=== PATIENT | female | born 1985 | race Caucasian/White ===

== ENCOUNTER 2016-05-02 17:31 | Emergency (ER) | payer OTHER ==
[~2016-05-02] VITALS: Ht 165.1 cm; Wt 123.0 kg
[~2016-05-02 17:31] MED LIST: PREN-64 PO
[2016-05-02 19:48] VITALS: BP 124/81
[2016-05-02] MEDS ORDERED: DEXAMETHASONE SOD PHOS 4 MG/ML 5 ML VIAL IM ONE (20:15)
[2016-05-02] MEDS ORDERED: LIDOCAINE HCL/PF 1% 2 ML VIAL IM ONE (20:15)
[2016-05-02] MEDS ORDERED: CefTRIAXone SODIUM 1 GM/VIAL IM ONE (20:15)
== END 2016-05-02 20:44 | disposition home or self-care (01) ==
LOC: EMS 17:32
DX: S90.861A Insect bite (nonvenomous), right foot, initial encounter (principal); W57.XXXA Bitten or stung by nonvenomous insect and other nonvenomous arthropods, initial encounter; Y93.01 Activity, walking, marching and hiking; Y92.830 Public park as the place of occurrence of the external cause; Y99.8 Other external cause status
CPT/HCPCS: 81025; 96372; 99284; J0696; J1100; J3490

== ENCOUNTER 2016-05-08 15:21 | Emergency (ER) | payer OTHER ==
[~2016-05-08] VITALS: Ht 160 cm; Wt 122.7 kg
[2016-05-08 16:42] LABS: BASOPHILS % (AUTO) 0.4 % (0.0-2.0); EOSINOPHILS % (AUTO) 0.9 % (1.0-6.0); HEMATOCRIT 38.6 % (36-46); HEMOGLOBIN 12.4 g/dL (12.0-16.0); LYMPHOCYTES # (AUTO) 2.2 K/uL (1.0-4.8); LYMPHOCYTES % (AUTO) 22.7 % (22.0-44.0); MEAN CORPUSCULAR HEMOGLOBIN 24.7 pg (26.0-34.0); MEAN CORPUSCULAR HGB CONC 32.2 G/dL (31.0-37.0); MEAN CORPUSCULAR VOLUME 77 fL (80-100); MONOCYTES # (AUTO) 0.4 K/uL (0.1-1.0); MONOCYTES % (AUTO) 3.8 % (2.0-9.0); NEUTROPHILS # (AUTO) 7.1 K/uL (1.8-7.7); NEUTROPHILS % (AUTO) 72.2 % (40.0-70.0); PLATELET COUNT (AUTO) 279 K/uL (150-450); RED BLOOD CELL COUNT(AUTO) 5.04 MIL/uL (4.00-5.20); RED CELL DISTRIBUTION WIDTH 16.1 % (11.5-14.5); WHITE BLOOD COUNT (AUTO) 9.8 K/uL (4.5-11.0)
[2016-05-08 16:50] LABS: ANION GAP 10 mmol/L (8-16); CALCIUM, TOTAL 8.9 mg/dL (8.8-10.5); CARBON DIOXIDE 25 mmol/L (22-29); CHLORIDE 104 mmol/L (98-107); CREATININE 0.68 mg/dL (0.60-1.30); GLOMERULAR FILTR. RATE CALC > 60 mL/min (>60); POTASSIUM 3.9 mmol/L (3.5-5.1); SODIUM SERUM 139 mmol/L (136-145); UREA NITROGEN, BLOOD 11 mg/dL (7-18)
[2016-05-08 16:57] LABS: ALANINE AMINOTRANSFERASE 27 U/L (12-78); ALBUMIN 3.3 g/dL (3.4-5.0); ASPARTATE AMINOTRANSFERASE 14 U/L (15-37); BILIRUBIN,TOTAL 0.3 mg/dL (0.1-1.0)
[2016-05-08 17:12] LABS: RBC MORPHOLOGY COMMENT ABNORMAL RBC MORPH
[2016-05-08 18:53] VITALS: BP 138/76
== END 2016-05-08 19:03 | disposition left against medical advice (07) ==
LOC: EMS 15:24 → EEVIPCON 15:24 → EMS 19:03
DX: F25.9 Schizoaffective disorder, unspecified (principal)
CPT/HCPCS: 36415; 80053; 80307; 85025; 99284; G0480

== ENCOUNTER 2016-08-24 22:00 | Emergency (ER) | payer OTHER ==
[~2016-08-24] VITALS: Ht 160 cm; Wt 122.0 kg
[2016-08-24] MEDS ORDERED: NORE0.3537 PO (22:24)
[2016-08-25] MEDS ORDERED: KETOROLAC TROMETHAMINE 60 MG/2 ML VIAL IM ONE (00:45)
[2016-08-25 01:12] VITALS: BP 128/74
== END 2016-08-25 01:21 | disposition home or self-care (01) ==
LOC: EMS 22:02
DX: M54.31 Sciatica, right side (principal)
CPT/HCPCS: 96372; 99283; J1885

== ENCOUNTER 2016-10-18 21:54 | Emergency (ER) | payer OTHER ==
[~2016-10-18] VITALS: Ht 162.6 cm; Wt 132.5 kg
[~2016-10-18 21:54] MED LIST changes: +PREN-155 PO; -PREN-64 PO
[2016-10-18] MEDS ORDERED: AMOX250C4 PO (22:09)
[2016-10-18] MEDS ORDERED: ACETAMINOPHEN 500 MG TABLET PO ONE (23:00)
[2016-10-18] MEDS ORDERED: AMOX TR/POT CLAV 875 MG/125 MG TABLET PO ONE (23:00)
[2016-10-18 23:56] VITALS: BP 107/69
== END 2016-10-19 00:01 | disposition home or self-care (01) ==
LOC: EMS 21:56
DX: O26.891 Other specified pregnancy related conditions, first trimester (principal); L03.113 Cellulitis of right upper limb; F25.9 Schizoaffective disorder, unspecified; Z3A.10 10 weeks gestation of pregnancy
CPT/HCPCS: 99283

== ENCOUNTER 2017-02-07 12:07 | Emergency (ER) | payer OTHER ==
[~2017-02-07] VITALS: Ht 162.6 cm; Wt 140.0 kg
[~2017-02-07 12:07] MED LIST changes: +AMOX250C4 PO
[2017-02-07] MEDS ORDERED: IBUPROFEN 100 MG/5 ML SUSPENSION UDCUP PO ONE (13:15)
[2017-02-07 14:25] VITALS: BP 126/75
== END 2017-02-07 14:26 | disposition home or self-care (01) ==
LOC: EMS 12:09
DX: O99.512 Diseases of the respiratory system complicating pregnancy, second trimester (principal); J20.9 Acute bronchitis, unspecified; Z3A.27 27 weeks gestation of pregnancy
CPT/HCPCS: 99281

== ENCOUNTER 2018-03-28 08:16 | Emergency (ER) | payer OTHER ==
[~2018-03-28] VITALS: Ht 160 cm; Wt 135.0 kg
[2018-03-28] MEDS ORDERED: ACETAMINOPHEN 500 MG TABLET PO ONE (09:00)
[2018-03-28] MEDS ORDERED: PENICILLIN V POTASSIUM 500 MG TABLET PO ONE (09:00)
[2018-03-28 10:01] VITALS: BP 126/76
== END 2018-03-28 10:03 | disposition home or self-care (01) ==
LOC: EMS 08:17
DX: O26.892 Other specified pregnancy related conditions, second trimester (principal); J02.9 Acute pharyngitis, unspecified; F25.9 Schizoaffective disorder, unspecified; Z3A.24 24 weeks gestation of pregnancy
CPT/HCPCS: 87430

== ENCOUNTER 2018-09-19 21:01 | Emergency (ER) | payer OTHER ==
[~2018-09-19] VITALS: Ht 160 cm; Wt 132.7 kg
[2018-09-19 21:59] VITALS: BP 129/77
== END 2018-09-19 22:53 | disposition home or self-care (01) ==
LOC: EMS 21:02
DX: S90.121A Contusion of right lesser toe(s) without damage to nail, initial encounter (principal); W22.8XXA Striking against or struck by other objects, initial encounter; Y93.89 Activity, other specified; Y92.89 Other specified places as the place of occurrence of the external cause; Y99.8 Other external cause status

== ENCOUNTER 2018-11-12 20:06 | Emergency (ER) | payer OTHER ==
[~2018-11-12] VITALS: Ht 162.6 cm; Wt 132.3 kg
[2018-11-12] MEDS: AMOXICILLIN TRIHYDRATE 250 MG CAPSULE PO ONE (22:32)
[2018-11-12] MEDS: IBUPROFEN 600 MG TABLET PO ONE (22:32)
[2018-11-12 22:40] VITALS: BP 126/92
[2018-11-12] MEDS: CIPROFLOXACIN HCL 250 MG TABLET PO ONE (22:45)
== END 2018-11-12 22:53 | disposition home or self-care (01) ==
LOC: EMS 20:07
DX: K04.7 Periapical abscess without sinus (principal)

== ENCOUNTER 2019-05-11 23:10 | Emergency (ER) | payer OTHER ==
[~2019-05-11] VITALS: Ht 160 cm; Wt 81.8 kg
[2019-05-11 23:50] LABS: BASOPHILS % (AUTO) 0.4 % (0.0-2.0); EOSINOPHILS % (AUTO) 2.8 % (1.0-6.0); HEMATOCRIT 38.2 % (36-46); HEMOGLOBIN 12.3 g/dL (12.0-16.0); LYMPHOCYTES # (AUTO) 2.8 K/uL (1.0-4.8); LYMPHOCYTES % (AUTO) 27.2 % (22.0-44.0); MEAN CORPUSCULAR HEMOGLOBIN 23.6 pg (26.0-34.0); MEAN CORPUSCULAR HGB CONC 32.3 G/dL (31.0-37.0); MEAN CORPUSCULAR VOLUME 73 fL (80-100); MONOCYTES # (AUTO) 0.4 K/uL (0.1-1.0); MONOCYTES % (AUTO) 3.7 % (2.0-9.0); NEUTROPHILS # (AUTO) 6.8 K/uL (1.8-7.7); NEUTROPHILS % (AUTO) 65.9 % (40.0-70.0); PLATELET COUNT (AUTO) 270 K/uL (150-450); RED BLOOD CELL COUNT(AUTO) 5.23 MIL/uL (4.00-5.20); RED CELL DISTRIBUTION WIDTH 18.1 % (11.5-14.5)
[2019-05-11 23:53] LABS: APPEARANCE,URINE CLEAR (CLEAR); BILIRUBIN,URINE NEGATIVE (NEGATIVE); GLUCOSE, URINE (UA) NEGATIVE (NEGATIVE); KETONES,URINE NEGATIVE (NEGATIVE); LEUKOCYTE ESTERASE ,URINE SMALL (NEGATIVE); NITRATE,URINE NEGATIVE (NEGATIVE); OCCULT BLOOD,URINE NEGATIVE (NEGATIVE); PROTEIN,URINE NEGATIVE (NEGATIVE); UROBILINOGEN,URINE 0.2 mg/dL (<=1.0)
[2019-05-12] LABS: ANION GAP 8 mmol/L (8-16); CALCIUM, TOTAL 9.6 mg/dL (8.8-10.5); CARBON DIOXIDE 28 mmol/L (22-29); CHLORIDE 106 mmol/L (98-107); CREATININE 0.82 mg/dL (0.60-1.30); GLOMERULAR FILTR. RATE CALC > 60 mL/min (>60); GLUCOSE,RANDOM 80 mg/dL (70-110); POTASSIUM 3.8 mmol/L (3.5-5.1); SODIUM SERUM 142 mmol/L (136-145); UREA NITROGEN, BLOOD 16 mg/dL (7-18)
[2019-05-12] MEDS ORDERED: ACETAMINOPHEN 500 MG TABLET PO ONE
[2019-05-12] MEDS ORDERED: FLUCONAZOLE 150 MG TABLET PO ONE
[2019-05-12 00:12] LABS: ALANINE AMINOTRANSFERASE 34 U/L (12-78); ALBUMIN 3.3 g/dL (3.4-5.0); ALKALINE PHOSPHATASE 105 U/L (46-116); ASPARTATE AMINOTRANSFERASE 16 U/L (15-37); BILIRUBIN,TOTAL 0.1 mg/dL (0.1-1.0); HCG,QUANTITATIVE < 1 mIU/mL (0-6); LIPASE 95 U/L (73-393); TOTAL PROTEIN, SERUM 7.2 g/dL (6.4-8.2)
[2019-05-12] MEDS ORDERED: KETOROLAC TROMETHAMINE 30 MG/ML VIAL IVP ONE (00:30)
[2019-05-12 00:31] LABS: BACTERIA,URINE Rare /HPF (None Seen); SQUAMOUS EPITHELIAL CELL,UR Moderate /LPF (None Seen)
[2019-05-12] MEDS ORDERED: SULFAMETHOX/TRIMETH DS 800-160 MG/TABLET PO ONE (01:00)
[2019-05-12 01:11] VITALS: BP 122/89
== END 2019-05-12 01:13 | disposition home or self-care (01) ==
LOC: EMS 23:10
DX: N12 Tubulo-interstitial nephritis, not specified as acute or chronic (principal); B37.3 Candidiasis of vulva and vagina; Z88.1 Allergy status to other antibiotic agents
CPT/HCPCS: 36415; 80053; 81001; 83690; 84702; 85025; 87086; 96374; 99284; J1885

== ENCOUNTER 2019-12-11 15:05 | Emergency (ER) | payer OTHER ==
[~2019-12-11] VITALS: Ht 160 cm; Wt 122.7 kg
[2019-12-11 15:07] VITALS: BP 130/73
== END 2019-12-11 17:40 | disposition home or self-care (01) ==
LOC: EMS 15:06
DX: S00.83XA Contusion of other part of head, initial encounter (principal); Z88.1 Allergy status to other antibiotic agents; Y04.0XXA Assault by unarmed brawl or fight, initial encounter; Y93.89 Activity, other specified; Y92.89 Other specified places as the place of occurrence of the external cause; Y99.8 Other external cause status
CPT/HCPCS: Z7502

== ENCOUNTER 2020-01-01 19:54 | Emergency (ER) | payer OTHER ==
[~2020-01-01] VITALS: Ht 162.6 cm; Wt 127.3 kg
[2020-01-01] MEDS ORDERED: PNV1TABL89 PO (20:02)
[2020-01-01] MEDS ORDERED: NEOMYCIN/BACITRACIN/POLYMYXIN B OINTMENT PACKET TP ONE (20:30)
[2020-01-01 20:36] VITALS: BP 120/77
== END 2020-01-01 20:36 | disposition home or self-care (01) ==
LOC: EMS 19:56
DX: T63.331A Toxic effect of venom of brown recluse spider, accidental (unintentional), initial encounter (principal); Z88.0 Allergy status to penicillin; Z79.899 Other long term (current) drug therapy; Y92.89 Other specified places as the place of occurrence of the external cause
CPT/HCPCS: Z7502; Z7610

== ENCOUNTER 2020-01-10 15:56 | Emergency (ER) | payer OTHER ==
[~2020-01-10] VITALS: Ht 172.7 cm; Wt 118.2 kg
[~2020-01-10 15:56] MED LIST changes: -AMOX250C4 PO; +PNV1TABL89 PO; -PREN-155 PO
[2020-01-10 16:53] LABS: BASOPHILS % (AUTO) 0.2 % (0.0-2.0); EOSINOPHILS % (AUTO) 2.2 % (1.0-6.0); HEMOGLOBIN 12.1 g/dL (12.0-16.0); LYMPHOCYTES # (AUTO) 2.4 K/uL (1.0-4.8); MEAN CORPUSCULAR HEMOGLOBIN 25.9 pg (26.0-34.0); MEAN CORPUSCULAR HGB CONC 32.8 G/dL (31.0-37.0); MEAN CORPUSCULAR VOLUME 79 fL (80-100); MONOCYTES # (AUTO) 0.4 K/uL (0.1-1.0); MONOCYTES % (AUTO) 3.6 % (2.0-9.0); NEUTROPHILS # (AUTO) 7.6 K/uL (1.8-7.7); PLATELET COUNT (AUTO) 257 K/uL (150-450); RED BLOOD CELL COUNT(AUTO) 4.68 MIL/uL (4.00-5.20); RED CELL DISTRIBUTION WIDTH 15.8 % (11.5-14.5)
[2020-01-10 17:01] LABS: ANION GAP 10 mmol/L (8-16); CALCIUM, TOTAL 9.4 mg/dL (8.8-10.5); CARBON DIOXIDE 29 mmol/L (22-29); CHLORIDE 105 mmol/L (98-107); CREATININE 0.69 mg/dL (0.60-1.30); GLOMERULAR FILTR. RATE CALC > 60 mL/min (>60); GLUCOSE,RANDOM 88 mg/dL (70-110); POTASSIUM 3.8 mmol/L (3.5-5.1); SODIUM SERUM 144 mmol/L (136-145); UREA NITROGEN, BLOOD 15 mg/dL (7-18)
[2020-01-10 17:36] LABS: ALANINE AMINOTRANSFERASE 21 U/L (12-78); ALBUMIN 3.1 g/dL (3.4-5.0); ALKALINE PHOSPHATASE 103 U/L (46-116); ASPARTATE AMINOTRANSFERASE 10 U/L (15-37); BILIRUBIN,TOTAL 0.2 mg/dL (0.1-1.0); TOTAL PROTEIN, SERUM 6.5 g/dL (6.4-8.2)
[2020-01-10 17:38] LABS: HCG,QUANTITATIVE 9330 mIU/mL (0-6)
[2020-01-10 18:12] LABS: APPEARANCE,URINE CLEAR (CLEAR); BILIRUBIN,URINE NEGATIVE (NEGATIVE); GLUCOSE, URINE (UA) NEGATIVE (NEGATIVE); KETONES,URINE NEGATIVE (NEGATIVE); LEUKOCYTE ESTERASE ,URINE NEGATIVE (NEGATIVE); NITRATE,URINE NEGATIVE (NEGATIVE); OCCULT BLOOD,URINE MODERATE (NEGATIVE); PH,URINE 5.5 (5.0-8.0); PROTEIN,URINE NEGATIVE (NEGATIVE); UROBILINOGEN,URINE 0.2 mg/dL (<=1.0)
[2020-01-10 18:19] LABS: WBC,URINE 0-2 /HPF (0-5)
[2020-01-10 18:20] LABS: BACTERIA,URINE None Seen /HPF (None Seen); SQUAMOUS EPITHELIAL CELL,UR Few /LPF (None Seen)
[2020-01-10 20:49] VITALS: BP 131/83
== END 2020-01-10 21:16 | disposition home or self-care (01) ==
LOC: EMS 15:56
DX: O03.4 Incomplete spontaneous abortion without complication (principal); F20.9 Schizophrenia, unspecified
CPT/HCPCS: 76801; 76817; 86901

== ENCOUNTER 2020-02-23 17:46 | Emergency (ER) | payer OTHER ==
[~2020-02-23] VITALS: Ht 172.7 cm; Wt 118.2 kg
[2020-02-23] MEDS ORDERED: ACETAMINOPHEN 500 MG TABLET PO ONE (22:30)
[2020-02-23] MEDS ORDERED: KETOROLAC TROMETHAMINE 30 MG/ML VIAL IM ONE (22:30)
[2020-02-23 22:48] LABS: BASOPHILS % (AUTO) 0.4 % (0.0-2.0); EOSINOPHILS % (AUTO) 2.2 % (1.0-6.0); HEMATOCRIT 35.7 % (36-46); HEMOGLOBIN 11.6 g/dL (12.0-16.0); LYMPHOCYTES # (AUTO) 2.6 K/uL (1.0-4.8); LYMPHOCYTES % (AUTO) 27.9 % (22.0-44.0); MEAN CORPUSCULAR HEMOGLOBIN 25.4 pg (26.0-34.0); MEAN CORPUSCULAR HGB CONC 32.4 G/dL (31.0-37.0); MEAN CORPUSCULAR VOLUME 78 fL (80-100); MONOCYTES # (AUTO) 0.4 K/uL (0.1-1.0); MONOCYTES % (AUTO) 4.1 % (2.0-9.0); NEUTROPHILS # (AUTO) 6.2 K/uL (1.8-7.7); NEUTROPHILS % (AUTO) 65.4 % (40.0-70.0); PLATELET COUNT (AUTO) 243 K/uL (150-450); RED BLOOD CELL COUNT(AUTO) 4.56 MIL/uL (4.00-5.20)
[2020-02-23 23:06] LABS: ANION GAP 2 mmol/L (8-16); CARBON DIOXIDE 30 mmol/L (22-29); CHLORIDE 107 mmol/L (98-107); CREATININE 0.65 mg/dL (0.60-1.30); GLOMERULAR FILTR. RATE CALC > 60 mL/min (>60); GLUCOSE,RANDOM 91 mg/dL (70-110); SODIUM SERUM 139 mmol/L (136-145); UREA NITROGEN, BLOOD 13 mg/dL (7-18)
[2020-02-23 23:18] LABS: ALANINE AMINOTRANSFERASE 29 U/L (12-78); ALBUMIN 3.2 g/dL (3.4-5.0); ALKALINE PHOSPHATASE 116 U/L (46-116); ASPARTATE AMINOTRANSFERASE 15 U/L (15-37); BILIRUBIN,TOTAL 0.2 mg/dL (0.1-1.0); HCG,QUANTITATIVE 193 mIU/mL (0-6); LIPASE 67 U/L (73-393); TOTAL PROTEIN, SERUM 6.9 g/dL (6.4-8.2)
[2020-02-23 23:55] LABS: APPEARANCE,URINE CLEAR (CLEAR); BILIRUBIN,URINE NEGATIVE (NEGATIVE); GLUCOSE, URINE (UA) NEGATIVE (NEGATIVE); KETONES,URINE NEGATIVE (NEGATIVE); LEUKOCYTE ESTERASE ,URINE NEGATIVE (NEGATIVE); NITRATE,URINE NEGATIVE (NEGATIVE); OCCULT BLOOD,URINE TRACE (NEGATIVE); PROTEIN,URINE NEGATIVE (NEGATIVE); UROBILINOGEN,URINE 0.2 mg/dL (<=1.0)
[2020-02-24 00:25] LABS: BACTERIA,URINE Rare /HPF (None Seen); RBC,URINE 0-2 /HPF (0-2); SQUAMOUS EPITHELIAL CELL,UR Few /LPF (None Seen); WBC,URINE 0-2 /HPF (0-5)
[2020-02-24 01:11] VITALS: BP 138/76
== END 2020-02-24 02:00 | disposition home or self-care (01) ==
LOC: EMS 17:46
DX: N93.9 Abnormal uterine and vaginal bleeding, unspecified (principal); R10.32 Left lower quadrant pain
CPT/HCPCS: 36415; 76817; 80053; 81001; 83690; 84702; 85025; 96372; 99285; J1885

== ENCOUNTER 2020-03-06 17:23 | Emergency (ER) | payer OTHER ==
[~2020-03-06] VITALS: Ht 172.7 cm; Wt 118.2 kg
[2020-03-06 17:26] VITALS: BP 148/80
== END 2020-03-06 19:16 | disposition home or self-care (01) ==
LOC: EMS 17:23
DX: U07.1 COVID-19 (principal); R05 Cough; F20.9 Schizophrenia, unspecified
CPT/HCPCS: 99283; U0003

== ENCOUNTER 2020-08-18 19:29 | Emergency (ER) | payer OTHER ==
[~2020-08-18] VITALS: Ht 162.6 cm; Wt 133.2 kg
[2020-08-18 20:50] VITALS: BP 138/70
== END 2020-08-18 21:00 | disposition home or self-care (01) ==
LOC: EMS 19:30
DX: H92.01 Otalgia, right ear (principal); F20.9 Schizophrenia, unspecified
CPT/HCPCS: 99281; Z7502

== ENCOUNTER 2020-09-13 17:44 | Emergency (ER) | payer OTHER ==
[~2020-09-13] VITALS: Ht 162.6 cm; Wt 132.3 kg
[2020-09-13] MEDS ORDERED: IBUP-1506 PO (17:47)
[2020-09-13] MEDS ORDERED: PSEU-191 PO (17:47)
[2020-09-13] MEDS ORDERED: ACETAMINOPHEN 500 MG TABLET PO ONE (18:30)
[2020-09-13 18:34] LABS: COVID AG,FIA SOURCE NASOPHARYNGEAL
[2020-09-13 19:30] LABS: RAPID GROUP A STREP NEGATIVE (NEGATIVE)
[2020-09-13 19:35] VITALS: BP 139/80
[2020-09-13 19:37] LABS: INFLUENZA TYPE A NEGATIVE FOR TYPE A (NEGATIVE); INFLUENZA TYPE B NEGATIVE FOR TYPE B (NEGATIVE)
[2020-09-13] MEDS ORDERED: AMOX TR/POT CLAV 875 MG/125 MG TABLET PO ONE (19:45)
[2020-09-13] MEDS ORDERED: FLUCONAZOLE 150 MG TABLET PO ONE (19:45)
== END 2020-09-13 20:01 | disposition home or self-care (01) ==
LOC: EMS 17:44
DX: J32.9 Chronic sinusitis, unspecified (principal); F20.9 Schizophrenia, unspecified; Z20.822 Contact with and (suspected) exposure to COVID-19
CPT/HCPCS: 81025; 87426; 87430; 87804; 99284; U0003; Z7502; Z7610

== ENCOUNTER 2020-09-26 02:08 | Emergency (ER) | payer OTHER ==
[~2020-09-26] VITALS: Ht 162.6 cm; Wt 132.3 kg
[~2020-09-26 02:08] MED LIST changes: +IBUP-1506 PO; -PNV1TABL89 PO; +PSEU-191 PO
[2020-09-26] MEDS ORDERED: ACETAMINOPHEN 325 MG TABLET PO ONE (03:00)
[2020-09-26] MEDS ORDERED: IBUPROFEN 400 MG TABLET PO ONE (04:30)
[2020-09-26 05:33] VITALS: BP 123/78
== END 2020-09-26 06:01 | disposition home or self-care (01) ==
LOC: EMS 02:09
DX: N64.4 Mastodynia (principal); F20.9 Schizophrenia, unspecified
CPT/HCPCS: 71045; 93005; 99283

== ENCOUNTER 2020-12-13 14:07 | Emergency (ER) | payer OTHER ==
[~2020-12-13] VITALS: Ht 165.1 cm; Wt 113.6 kg
[2020-12-13] MEDS ORDERED: MethylPREDNISolone SOD SUCC 125 MG/2 ML VIAL IVP ONE (14:30)
[2020-12-13] MEDS ORDERED: DiphenhydrAMINE HCL 50 MG/ML VIAL IVP ONE (14:30)
[2020-12-13] MEDS ORDERED: FAMOTIDINE 10 MG/ML 2 ML VIAL IVP ONE (14:30)
[2020-12-13 15:32] VITALS: BP 115/60
== END 2020-12-13 16:48 | disposition home or self-care (01) ==
LOC: EMS 14:09
DX: T78.40XA Allergy, unspecified, initial encounter (principal); F20.9 Schizophrenia, unspecified; Z79.899 Other long term (current) drug therapy; X58.XXXA Exposure to other specified factors, initial encounter
CPT/HCPCS: 96374; 96375; 99284; J1200; J2930; J3490

== ENCOUNTER 2020-12-19 05:53 | Emergency (ER) | payer OTHER ==
[~2020-12-19] VITALS: Ht 162.6 cm; Wt 139.1 kg
[2020-12-19] MEDS ORDERED: ACETAMINOPHEN 500 MG TABLET PO ONE (06:30)
[2020-12-19] MEDS ORDERED: KETOROLAC TROMETHAMINE 60 MG/2 ML VIAL IM ONE (06:30)
[2020-12-19] MEDS ORDERED: METHOCARBAMOL 750 MG TABLET PO ONE (06:30)
[2020-12-19 06:44] VITALS: BP 137/71
== END 2020-12-19 07:59 | disposition home or self-care (01) ==
LOC: EMS 05:55
DX: S39.012A Strain of muscle, fascia and tendon of lower back, initial encounter (principal); X58.XXXA Exposure to other specified factors, initial encounter; Y93.89 Activity, other specified; Y92.89 Other specified places as the place of occurrence of the external cause; Y99.8 Other external cause status
CPT/HCPCS: 96372; 99283; J1885

== ENCOUNTER 2021-01-22 12:03 | Emergency (ER) | payer OTHER ==
[~2021-01-22] VITALS: Ht 162.6 cm; Wt 135.0 kg
[2021-01-22 13:36] LABS: BASOPHILS % (AUTO) 0.1 % (0.0-2.0); EOSINOPHILS % (AUTO) 0.2 % (1.0-6.0); HEMATOCRIT 38.4 % (36-46); HEMOGLOBIN 12.5 g/dL (12.0-16.0); LYMPHOCYTES # (AUTO) 0.4 K/uL (1.0-4.8); LYMPHOCYTES % (AUTO) 4.9 % (22.0-44.0); MEAN CORPUSCULAR HEMOGLOBIN 25.2 pg (26.0-34.0); MEAN CORPUSCULAR HGB CONC 32.7 G/dL (31.0-37.0); MEAN CORPUSCULAR VOLUME 77 fL (80-100); MONOCYTES # (AUTO) 0.2 K/uL (0.1-1.0); NEUTROPHILS # (AUTO) 8.5 K/uL (1.8-7.7); PLATELET COUNT (AUTO) 223 K/uL (150-450); RED BLOOD CELL COUNT(AUTO) 4.98 MIL/uL (4.00-5.20); RED CELL DISTRIBUTION WIDTH 15.7 % (11.5-14.5)
[2021-01-22 13:38] LABS: NEUTROPHILS % (AUTO) 92.8 % (40.0-70.0)
[2021-01-22] MEDS ORDERED: ACETAMINOPHEN 500 MG TABLET PO ONE (13:45)
[2021-01-22] MEDS ORDERED: ONDANSETRON HCL 4 MG/2 ML VIAL IM ONE (13:45)
[2021-01-22] MEDS ORDERED: DIPHENOXYLATE/ATROP 2.5-0.025 MG TABLET PO ONE (13:45)
[2021-01-22] MEDS ORDERED: KETOROLAC TROMETHAMINE 60 MG/2 ML VIAL IM ONE (13:45)
[2021-01-22 13:47] LABS: ANION GAP 8 mmol/L (8-16); CALCIUM, TOTAL 8.1 mg/dL (8.8-10.5); CARBON DIOXIDE 26 mmol/L (22-29); CHLORIDE 104 mmol/L (98-107); CREATININE 0.61 mg/dL (0.60-1.30); GLOMERULAR FILTR. RATE CALC > 60 mL/min (>60); GLUCOSE,RANDOM 102 mg/dL (70-110); POTASSIUM 3.4 mmol/L (3.5-5.1); SODIUM SERUM 138 mmol/L (136-145); UREA NITROGEN, BLOOD 16 mg/dL (7-18)
[2021-01-22 13:54] LABS: ALANINE AMINOTRANSFERASE 22 U/L (12-78); ALBUMIN 2.8 g/dL (3.4-5.0); ALKALINE PHOSPHATASE 92 U/L (46-116); ASPARTATE AMINOTRANSFERASE 12 U/L (15-37); BILIRUBIN,TOTAL 0.3 mg/dL (0.1-1.0); TOTAL PROTEIN, SERUM 6.7 g/dL (6.4-8.2)
[2021-01-22 15:21] VITALS: BP 136/74
== END 2021-01-22 15:30 | disposition home or self-care (01) ==
LOC: EMS 12:09
DX: S39.012A Strain of muscle, fascia and tendon of lower back, initial encounter (principal); K52.9 Noninfective gastroenteritis and colitis, unspecified; X58.XXXA Exposure to other specified factors, initial encounter; Y93.89 Activity, other specified; Y92.89 Other specified places as the place of occurrence of the external cause; Y99.8 Other external cause status
CPT/HCPCS: 36415; 80053; 82962; 84703; 85025; 96372; 99284; J1885; J2405

== ENCOUNTER 2021-03-25 20:47 | Emergency (ER) | payer OTHER ==
[2021-03-25 21:18] VITALS: BP 139/88
[2021-03-25] MEDS ORDERED: IBUPROFEN 800 MG TABLET PO ONE (23:45)
== END 2021-03-25 22:36 | disposition home or self-care (01) ==
LOC: EMS 20:47
DX: N61.0 Mastitis without abscess (principal); F20.9 Schizophrenia, unspecified
CPT/HCPCS: 99282; 99283

== ENCOUNTER 2021-06-03 05:58 | Emergency (ER) | payer OTHER ==
[~2021-06-03] VITALS: Ht 170.2 cm; Wt 90.9 kg
[2021-06-03 06:12] LABS: COVID AG,FIA SOURCE NASAL SWAB
[2021-06-03 06:36] VITALS: BP 138/79
[2021-06-03] MEDS ORDERED: BENZ1LOZ68 PO (07:02)
[2021-06-03] MEDS ORDERED: METH-812 PO (15:21)
[2021-06-03] MEDS ORDERED: SEMA2.4P SQ (15:21)
[2021-06-03] MEDS ORDERED: AMOX250C4 PO (17:07)
[2021-06-03] MEDS ORDERED: FLUC150T55 PO (17:20)
== END 2021-06-03 07:10 | disposition home or self-care (01) ==
LOC: EMS 06:01
DX: J02.8 Acute pharyngitis due to other specified organisms (principal); B97.89 Other viral agents as the cause of diseases classified elsewhere; F20.9 Schizophrenia, unspecified; Z20.822 Contact with and (suspected) exposure to COVID-19; Z88.5 Allergy status to narcotic agent
CPT/HCPCS: 87430; 99283

== ENCOUNTER 2021-06-03 15:13 | Emergency (ER) | payer OTHER ==
[~2021-06-03] VITALS: Ht 162.6 cm; Wt 134.1 kg
[~2021-06-03 15:13] MED LIST changes: +BENZ1LOZ68 PO
[2021-06-03 15:17] VITALS: BP 126/66
[2021-06-03] MEDS ORDERED: METH-812 PO (15:21)
[2021-06-03] MEDS ORDERED: SEMA2.4P SQ (15:21)
[2021-06-03] MEDS ORDERED: AMOX250C4 PO (17:07)
[2021-06-03] MEDS ORDERED: DEXAMETHASONE 4 MG TABLET PO ONE (17:15)
[2021-06-03] MEDS ORDERED: FLUC150T55 PO (17:20)
== END 2021-06-03 17:23 | disposition home or self-care (01) ==
LOC: EMS 15:13
DX: J02.9 Acute pharyngitis, unspecified (principal); H92.01 Otalgia, right ear; F20.9 Schizophrenia, unspecified; Z88.5 Allergy status to narcotic agent
CPT/HCPCS: 99283; J8540

== ENCOUNTER 2021-10-10 18:52 | Emergency (ER) | payer OTHER ==
[~2021-10-10] VITALS: Ht 162.6 cm; Wt 127.3 kg
[~2021-10-10 18:52] MED LIST changes: +AMOX250C4 PO; +BENZ1LOZ50 PO; -BENZ1LOZ68 PO; +FLUC150T61 PO; +METH-812 PO; +SEMA2.4P SQ
[2021-10-10] MEDS ORDERED: KETOROLAC TROMETHAMINE 60 MG/2 ML VIAL IM ONE (19:45)
[2021-10-10] MEDS ORDERED: LIDOCAINE 5% TRANSDERMAL PATCH TD ONE (19:45)
[2021-10-10 19:55] VITALS: BP 122/71
[2021-10-11] MEDS ORDERED: METH-661 PO (18:54)
== END 2021-10-10 20:35 | disposition home or self-care (01) ==
LOC: EMS 18:52
DX: M54.50 Low back pain, unspecified (principal); F20.9 Schizophrenia, unspecified; Z86.16 Personal history of COVID-19; Z86.2 Personal history of diseases of the blood and blood-forming organs and certain disorders involving the immune mechanism; Z98.890 Other specified postprocedural states; Z88.6 Allergy status to analgesic agent
CPT/HCPCS: 99283; 96372; J1885

== ENCOUNTER 2021-10-11 18:27 | Emergency (ER) | payer OTHER ==
[~2021-10-11] VITALS: Ht 172.7 cm; Wt 97.7 kg
[2021-10-11] MEDS ORDERED: METH-661 PO (18:54)
[2021-10-11] MEDS ORDERED: CYCLOBENZAPRINE HCL 10 MG TABLET PO ONE (20:30)
[2021-10-11] MEDS ORDERED: MORPHINE SULFATE 4 MG/ML SYRINGE IVP ONE (20:30)
[2021-10-11] MEDS ORDERED: LIDOCAINE 5% TRANSDERMAL PATCH TD ONE (20:30)
[2021-10-11] MEDS ORDERED: KETOROLAC TROMETHAMINE 30 MG/ML VIAL IVP ONE (20:30)
[2021-10-11 22:00] VITALS: BP 129/76
== END 2021-10-11 22:03 | disposition home or self-care (01) ==
LOC: EMS 18:31
DX: M54.50 Low back pain, unspecified (principal); G89.29 Other chronic pain; F20.9 Schizophrenia, unspecified; Z98.890 Other specified postprocedural states; Z86.16 Personal history of COVID-19; Z86.2 Personal history of diseases of the blood and blood-forming organs and certain disorders involving the immune mechanism; Z88.5 Allergy status to narcotic agent
CPT/HCPCS: 99284; 96374; 96375; J1885; J2270

== ENCOUNTER 2021-12-01 06:27 | Emergency (ER) | payer OTHER ==
[~2021-12-01] VITALS: Ht 172.7 cm; Wt 98.0 kg
[~2021-12-01 06:27] MED LIST changes: -AMOX250C4 PO; -BENZ1LOZ50 PO; -FLUC150T61 PO; -IBUP-1506 PO; +METH-661 PO; -METH-812 PO; -PSEU-191 PO
[2021-12-01] MEDS ORDERED: SODIUM CHLORIDE 0.9% 2,000 ML IV ONE (06:45)
[2021-12-01] MEDS ORDERED: KETOROLAC TROMETHAMINE 30 MG/ML VIAL IVP ONE (06:45)
[2021-12-01] MEDS ORDERED: ACETAMINOPHEN 500 MG TABLET PO ONE (06:45)
[2021-12-01] MEDS ORDERED: ONDANSETRON HCL 4 MG/2 ML VIAL IVP ONE (06:45)
[2021-12-01 06:51] LABS: COVID AG,FIA SOURCE NASOPHARYNGEAL
[2021-12-01 07:28] LABS: INFLUENZA TYPE A NEGATIVE FOR TYPE A (NEGATIVE); INFLUENZA TYPE B NEGATIVE FOR TYPE B (NEGATIVE)
[2021-12-01 07:47] LABS: BASOPHILS % (AUTO) 0.1 % (0.0-2.0); EOSINOPHILS % (AUTO) 0.4 % (1.0-6.0); HEMATOCRIT 35.7 % (36-46); HEMOGLOBIN 11.7 g/dL (12.0-16.0); LYMPHOCYTES # (AUTO) 0.8 K/uL (1.0-4.8); LYMPHOCYTES % (AUTO) 14.7 % (22.0-44.0); MEAN CORPUSCULAR HEMOGLOBIN 25.6 pg (26.0-34.0); MEAN CORPUSCULAR HGB CONC 32.7 G/dL (31.0-37.0); MEAN CORPUSCULAR VOLUME 78 fL (80-100); MONOCYTES # (AUTO) 0.2 K/uL (0.1-1.0); NEUTROPHILS # (AUTO) 4.2 K/uL (1.8-7.7); NEUTROPHILS % (AUTO) 81.8 % (40.0-70.0); PLATELET COUNT (AUTO) 194 K/uL (150-450); RED BLOOD CELL COUNT(AUTO) 4.56 MIL/uL (4.00-5.20)
[2021-12-01 07:56] LABS: ANION GAP 4 mmol/L (8-16); CALCIUM, TOTAL 8.6 mg/dL (8.8-10.5); CARBON DIOXIDE 30 mmol/L (22-29); CHLORIDE 104 mmol/L (98-107); CREATININE 0.53 mg/dL (0.60-1.30); GLOMERULAR FILTR. RATE CALC > 60 mL/min (>60); GLUCOSE,RANDOM 94 mg/dL (70-110); POTASSIUM 3.6 mmol/L (3.5-5.1); SODIUM SERUM 138 mmol/L (136-145); UREA NITROGEN, BLOOD 8 mg/dL (7-18)
[2021-12-01 08:02] LABS: ALANINE AMINOTRANSFERASE 16 U/L (12-78); ALBUMIN 3.1 g/dL (3.4-5.0); ALKALINE PHOSPHATASE 73 U/L (46-116); ASPARTATE AMINOTRANSFERASE 10 U/L (15-37); BILIRUBIN,TOTAL 0.3 mg/dL (0.1-1.0); LIPASE 52 U/L (73-393); TOTAL PROTEIN, SERUM 6.4 g/dL (6.4-8.2)
[2021-12-01 08:45] VITALS: BP 119/71
[2021-12-01] MEDS ORDERED: ONDA-104 PO (09:40)
[2021-12-01] MEDS ORDERED: ACET-66 PO (09:40)
== END 2021-12-01 10:22 | disposition home or self-care (01) ==
LOC: EMS 06:27
DX: K52.89 Other specified noninfective gastroenteritis and colitis (principal); F20.9 Schizophrenia, unspecified; Z88.5 Allergy status to narcotic agent; Z98.890 Other specified postprocedural states; H92.09 Otalgia, unspecified ear; Z20.822 Contact with and (suspected) exposure to COVID-19
CPT/HCPCS: 99284; 96374; 96361; 96375; 87426; 80053; 83690; 84703; 85025; 87804; J1885; J2405; J7030

== ENCOUNTER 2022-03-01 14:52 | Emergency (ER) | payer OTHER ==
[~2022-03-01] VITALS: Ht 162.6 cm; Wt 130.0 kg
[~2022-03-01 14:52] MED LIST changes: +ACET-66 PO; +ONDA-104 PO
[2022-03-01 15:09] VITALS: BP 136/76
[2022-03-01 16:01] LABS: COVID AG,FIA SOURCE NASOPHARYNGEAL
[2022-03-01 16:10] LABS: INFLUENZA TYPE A NEGATIVE FOR TYPE A (NEGATIVE); INFLUENZA TYPE B NEGATIVE FOR TYPE B (NEGATIVE)
[2022-03-01] MEDS ORDERED: FLUC150T61 PO (16:58)
[2022-03-01] MEDS ORDERED: CEPH-558 PO (16:58)
== END 2022-03-01 17:07 | disposition home or self-care (01) ==
LOC: EMS 15:03
DX: H66.91 Otitis media, unspecified, right ear (principal); J06.9 Acute upper respiratory infection, unspecified; Z88.6 Allergy status to analgesic agent; Z20.822 Contact with and (suspected) exposure to COVID-19; R50.9 Fever, unspecified; H92.01 Otalgia, right ear; F20.9 Schizophrenia, unspecified
CPT/HCPCS: 87804; 99283

== ENCOUNTER 2022-06-25 06:53 | Emergency (ER) | payer OTHER ==
[~2022-06-25] VITALS: Ht 162.6 cm; Wt 126.4 kg
[~2022-06-25 06:53] MED LIST changes: +CEPH-558 PO; +FLUC150T61 PO
[2022-06-25] MEDS ORDERED: FERR-82 PO (07:32)
[2022-06-25 07:39] LABS: COVID AG,FIA SOURCE NASAL SWAB
[2022-06-25 08:04] LABS: RAPID GROUP A STREP POSITIVE (NEGATIVE)
[2022-06-25 08:07] LABS: INFLUENZA TYPE A NEGATIVE FOR TYPE A (NEGATIVE); INFLUENZA TYPE B NEGATIVE FOR TYPE B (NEGATIVE)
[2022-06-25] MEDS ORDERED: HYDR-4723 PO (09:36)
[2022-06-25] MEDS ORDERED: PENI500T2 PO (09:36)
[2022-06-25] MEDS ORDERED: IBUP-1554 PO (09:36)
[2022-06-25] MEDS ORDERED: ACETAMINOPHEN 500 MG TABLET PO ONE (09:45)
[2022-06-25] MEDS ORDERED: KETOROLAC TROMETHAMINE 60 MG/2 ML VIAL IM ONE (09:45)
[2022-06-25 10:00] VITALS: BP 114/59
[2022-06-25] MEDS ORDERED: LIDOCAINE 2% VISCOUS 15 ML SOLUTION UDCUP PO ONE (10:15)
== END 2022-06-25 10:19 | disposition home or self-care (01) ==
LOC: EMS 06:54
DX: J02.0 Streptococcal pharyngitis (principal); Z20.822 Contact with and (suspected) exposure to COVID-19
CPT/HCPCS: 99283; 87426; 87430; 87804; 96372; J1885

== ENCOUNTER 2022-11-24 16:46 | Emergency (ER) | payer OTHER ==
[~2022-11-24] VITALS: Ht 162.6 cm; Wt 129.6 kg
[~2022-11-24 16:46] MED LIST changes: -ACET-66 PO; -CEPH-558 PO; +FERR-82 PO; -FLUC150T61 PO; +HYDR-4723 PO; +IBUP-1554 PO; -METH-661 PO; -ONDA-104 PO; +PENI500T2 PO; -SEMA2.4P SQ
[2022-11-24 16:50] VITALS: TEMP 98.5
[2022-11-24 17:54] LABS: BASOPHILS % (AUTO) 0.3 % (0.0-2.0); EOSINOPHILS % (AUTO) 1.9 % (1.0-6.0); HEMATOCRIT 41.8 % (36-46); MEAN CORPUSCULAR HEMOGLOBIN 24.7 pg (26.0-34.0); MEAN CORPUSCULAR HGB CONC 31.1 G/dL (31.0-37.0); MEAN CORPUSCULAR VOLUME 79 fL (80-100); MONOCYTES # (AUTO) 0.5 K/uL (0.1-1.0); MONOCYTES % (AUTO) 4.1 % (2.0-9.0); NEUTROPHILS # (AUTO) 7.7 K/uL (1.8-7.7); NEUTROPHILS % (AUTO) 67.7 % (40.0-70.0); PLATELET COUNT (AUTO) 269 K/uL (150-450); RED BLOOD CELL COUNT(AUTO) 5.26 MIL/uL (4.00-5.20); WHITE BLOOD COUNT (AUTO) 11.4 K/uL (4.5-11.0)
[2022-11-24 18:02] LABS: CALCIUM, TOTAL 9.6 mg/dL (8.8-10.5); CARBON DIOXIDE 29 mmol/L (22-29); CHLORIDE 108 mmol/L (98-107); CREATININE 0.55 mg/dL (0.60-1.30); GLOMERULAR FILTR. RATE CALC > 60 mL/min (>60); GLUCOSE,RANDOM 70 mg/dL (70-110); UREA NITROGEN, BLOOD 12 mg/dL (7-18)
[2022-11-24 18:08] LABS: ALANINE AMINOTRANSFERASE 17 U/L (12-78); ALBUMIN 3.4 g/dL (3.4-5.0); ALKALINE PHOSPHATASE 101 U/L (46-116); ANION GAP 3 mmol/L (8-16); ASPARTATE AMINOTRANSFERASE 13 U/L (15-37); BILIRUBIN,TOTAL 0.2 mg/dL (0.1-1.0); POTASSIUM 3.7 mmol/L (3.5-5.1); SODIUM SERUM 140 mmol/L (136-145); TOTAL PROTEIN, SERUM 7.1 g/dL (6.4-8.2)
[2022-11-24] MEDS ORDERED: DIPH50CA37 PO (18:45)
[2022-11-24] MEDS ORDERED: PSEU-191 PO (18:45)
[2022-11-24 18:49] LABS: APPEARANCE,URINE CLEAR (CLEAR); BILIRUBIN,URINE NEGATIVE (NEGATIVE); COLOR,URINE LIGHT YELLOW (YELLOW); GLUCOSE, URINE (UA) NEGATIVE (NEGATIVE); KETONES,URINE NEGATIVE (NEGATIVE); LEUKOCYTE ESTERASE ,URINE NEGATIVE (NEGATIVE); NITRATE,URINE NEGATIVE (NEGATIVE); OCCULT BLOOD,URINE LARGE (NEGATIVE); PH,URINE 5.5 (5.0-8.0); PROTEIN,URINE TRACE mg/dL (NEGATIVE); SPECIFIC GRAVITIY, URINE 1.021 (1.003-1.030); UROBILINOGEN,URINE <=1.0 mg/dL (<=1.0)
[2022-11-24 18:55] VITALS: BP 135/84; PULSE 86; RESP 16
[2022-11-24 18:58] LABS: BACTERIA,URINE Rare /HPF (None Seen); SQUAMOUS EPITHELIAL CELL,UR Few /LPF (None Seen); WBC,URINE 0-2 /HPF (0-5)
== END 2022-11-24 19:08 | disposition home or self-care (01) ==
LOC: EMS 16:50
DX: N92.1 Excessive and frequent menstruation with irregular cycle (principal); J06.9 Acute upper respiratory infection, unspecified; F20.9 Schizophrenia, unspecified; G89.29 Other chronic pain; M54.50 Low back pain, unspecified; Z98.890 Other specified postprocedural states; Z88.5 Allergy status to narcotic agent
CPT/HCPCS: 80053; 81001; 84703; 85025; 99283

== ENCOUNTER 2023-10-26 21:09 | Emergency (ER) | payer OTHER ==
[~2023-10-26] VITALS: Ht 162.6 cm; Wt 136.0 kg
[~2023-10-26 21:09] MED LIST changes: +DIPH50CA37 PO; +HYDR-4062 PO; -HYDR-4723 PO; +PSEU-191 PO
[2023-10-26 21:13] VITALS: TEMP 97.7
[2023-10-26] MEDS ORDERED: OXYC-38 PO (22:35)
[2023-10-26] MEDS: KETOROLAC TROMETHAMINE 60 MG/2 ML VIAL IM ONE (22:41)
[2023-10-26 23:12] VITALS: BP 146/73; PULSE 85; RESP 18
== END 2023-10-26 23:26 | disposition home or self-care (01) ==
LOC: EMS 21:09
DX: K08.89 Other specified disorders of teeth and supporting structures (principal); F20.9 Schizophrenia, unspecified; Z98.890 Other specified postprocedural states; Z88.5 Allergy status to narcotic agent
CPT/HCPCS: 99283; 96372; J1885

== ENCOUNTER 2024-09-20 18:22 | Emergency (ER) | payer OTHER ==
[~2024-09-20] VITALS: Ht 162.6 cm; Wt 136.0 kg
[~2024-09-20 18:22] MED LIST changes: +ALBU18HF12 IH; +AMOX1TAB15 PO; -DIPH50CA37 PO; -FERR-82 PO; +METR-172 PO; -PENI500T2 PO; +PRED-554 PO; -PSEU-191 PO
[2024-09-20 18:38] VITALS: TEMP 98.4
[2024-09-20 20:20] LABS: PLATELET COUNT (AUTO) 291 K/uL (150-450); RED BLOOD CELL COUNT(AUTO) 5.08 MIL/uL (4.00-5.20); RED CELL DISTRIBUTION WIDTH 16.5 % (11.5-14.5); WHITE BLOOD COUNT (AUTO) 10.1 K/uL (4.5-11.0)
[2024-09-20 20:29] LABS: CALCIUM, TOTAL 9.6 mg/dL (8.8-10.5); CREATININE 0.92 mg/dL (0.60-1.30); GLOMERULAR FILTR. RATE CALC > 60 mL/min (>60); GLUCOSE,RANDOM 107 mg/dL (70-110); SODIUM SERUM 141 mmol/L (136-145); UREA NITROGEN, BLOOD 12 mg/dL (7-18)
[2024-09-20] MEDS ORDERED: DEXA4 PO (22:41)
[2024-09-20] MEDS ORDERED: METH-812 PO (22:41)
[2024-09-20] MEDS ORDERED: KETO10TA2 PO (22:41)
[2024-09-20] MEDS: KETOROLAC TROMETHAMINE 60 MG/2 ML VIAL IM ONE (22:44)
[2024-09-20 23:00] VITALS: BP 121/74; PULSE 82; RESP 18; O2SAT 99
== END 2024-09-20 23:06 | disposition home or self-care (01) ==
LOC: EMS 18:22
DX: S46.811A Strain of other muscles, fascia and tendons at shoulder and upper arm level, right arm, initial encounter (principal); Z88.5 Allergy status to narcotic agent; Z79.52 Long term (current) use of systemic steroids; Z98.890 Other specified postprocedural states; X58.XXXA Exposure to other specified factors, initial encounter; Y93.89 Activity, other specified; Y92.89 Other specified places as the place of occurrence of the external cause; Y99.8 Other external cause status
CPT/HCPCS: 99283; 80048; 84703; 85025; 36415; 96372; J1885

== ENCOUNTER 2024-09-29 21:21 | Emergency (ER) | payer OTHER ==
[~2024-09-29] VITALS: Ht 161.3 cm; Wt 136.4 kg
[~2024-09-29 21:21] MED LIST changes: +DEXA4 PO; +KETO10TA2 PO; +METH-812 PO
[2024-09-29 21:51] VITALS: BP 107/74; PULSE 88; RESP 20; TEMP 98.6; O2SAT 99
[2024-09-29 22:03] LABS: COVID AG,FIA SOURCE NASAL SWAB
[2024-09-29 22:10] LABS: RAPID GROUP A STREP NEGATIVE (NEGATIVE)
[2024-09-29 22:22] LABS: INFLUENZA TYPE A NEGATIVE FOR TYPE A (NEGATIVE); INFLUENZA TYPE B NEGATIVE FOR TYPE B (NEGATIVE); SARS-COV2 (COVID) ANTIGEN,FIA Negative (Negative)
[2024-09-29] MEDS: ACETAMINOPHEN 500 MG TABLET PO ONE (23:52)
[2024-09-29] MEDS: IBUPROFEN 400 MG TABLET PO ONE (23:52)
== END 2024-09-30 | disposition home or self-care (01) ==
LOC: EMS 21:21
DX: J02.8 Acute pharyngitis due to other specified organisms (principal); B97.89 Other viral agents as the cause of diseases classified elsewhere; Z88.5 Allergy status to narcotic agent; Z79.52 Long term (current) use of systemic steroids; Z20.822 Contact with and (suspected) exposure to COVID-19; Z79.899 Other long term (current) drug therapy
CPT/HCPCS: 99284; 87426; 87430; 87804; J8540; Z7502; Z7610

== ENCOUNTER 2025-01-12 09:03 | Emergency (ER) | payer OTHER ==
[~2025-01-12] VITALS: Ht 161.3 cm; Wt 138.6 kg
[2025-01-12 09:28] LABS: COVID AG,FIA SOURCE NASAL SWAB
[2025-01-12 10:03] LABS: SARS-COV2 (COVID) ANTIGEN,FIA Negative (Negative)
[2025-01-12 10:05] LABS: INFLUENZA TYPE A NEGATIVE FOR TYPE A (NEGATIVE); INFLUENZA TYPE B NEGATIVE FOR TYPE B (NEGATIVE)
[2025-01-12] MEDS: AZITHROMYCIN 500 MG TABLET PO ONE (11:04)
[2025-01-12] MEDS: ALBUTEROL SULFATE HFA 90 MCG/PUFF 8 GM INHALER IH ONE (11:05)
[2025-01-12 11:31] VITALS: TEMP 98.2
[2025-01-12] MEDS ORDERED: AZIT250T9 PO (11:32)
[2025-01-12] MEDS ORDERED: BENZ-227 PO (11:32)
[2025-01-12 11:39] VITALS: BP 144/84; PULSE 97; RESP 18; O2SAT 98
== END 2025-01-12 11:57 | disposition home or self-care (01) ==
LOC: EMS 09:03
DX: J18.9 Pneumonia, unspecified organism (principal); R05.9 Cough, unspecified; R06.2 Wheezing; Z79.52 Long term (current) use of systemic steroids; Z88.5 Allergy status to narcotic agent; Z79.899 Other long term (current) drug therapy; Z20.822 Contact with and (suspected) exposure to COVID-19
CPT/HCPCS: 99284; 71046; 87426; 87804; 94640; J0456; J3535

== ENCOUNTER 2025-02-11 21:01 | Emergency (ER) | payer OTHER ==
[~2025-02-11] VITALS: Ht 162.6 cm; Wt 141.4 kg
[2025-02-11] MEDS ORDERED: CLIN300C58 PO (22:23)
[2025-02-11] MEDS ORDERED: IBUP-1493 PO (22:23)
[2025-02-11] MEDS ORDERED: HYDR-4062 PO (22:23)
[2025-02-11 22:40] VITALS: BP 127/65; PULSE 71; RESP 14; TEMP 97.3; O2SAT 100
== END 2025-02-11 23:05 | disposition home or self-care (01) ==
LOC: EMS 21:01
DX: K02.9 Dental caries, unspecified (principal); K08.89 Other specified disorders of teeth and supporting structures; Z79.52 Long term (current) use of systemic steroids; Z87.59 Personal history of other complications of pregnancy, childbirth and the puerperium; Z88.5 Allergy status to narcotic agent; Z79.899 Other long term (current) drug therapy
CPT/HCPCS: 99283; Z7502